=== PATIENT | male | born 1945 | race Caucasian/White ===

== ENCOUNTER 2023-10-16 09:26 | Observation (INO) ==
--- NOTE | 2023-10-16 09:47 | Emergency Department Note ---
Impression & Plan Chest pain, D-dimer, elevated, Anemia ED Provider Note NAME: HAKAN HECK AGE: 78 SEX: M : 1945 ARRIVES VIA: Walk-In INFORMANT: Patient, ED PROVIDER(S): Hugo Spivey DO CHIEF COMPLAINT: Exertional chest pain HPI: Patient is a 78-year-old male with past medical history of Raynaud's, and hypertension who presents to the ER for exertional chest pain. Symptoms started on Monday. Prior to this he has been noticing that with any exertion he is very winded and worn out. Monday started noticing twinges in the middle of his chest with exertion. Resolves with rest. No arm or jaw pain. No belly pain, nausea, vomiting, or diarrhea. No dysuria, urgency or frequency. No other exacerbating or remitting factors. ADDITIONAL HISTORY OBTAINED: Per HPI Chronic Medical/Social Conditions Affecting Care: Per HPI PAST MEDICAL HISTORY:See Below PAST SURGICAL HISTORY:See Below FAMILY HISTORY:See Below SOCIAL HISTORY:See Below HOME MEDICATIONS:See Below ALLERGIES:See Below VITALS:See Below PHYSICAL EXAMINATION: GENERAL: Sitting up in bed, alert, well appearing, well nourished, no distress, non-toxic EYE EXAM: normal conjunctiva. PERRL and EOM's grossly intact. OROPHARYNX: no exudate, no erythema, lips, buccal mucosa, and tongue normal and mucous membranes are moist NECK: supple, no nuchal rigidity, no adenopathy, non-tender LUNGS: Clear to auscultation. Normal chest wall mechanics HEART: no murmurs, S1 normal and S2 normal ABDOMEN: abdomen soft, non-tender, normo-active bowel sounds, no masses, no rebound or guarding. BACK: Back is symmetrical on inspection and there is no deformity, no midline tenderness, no CVA tenderness. SKIN: no rashes and no bruising UPPER EXTREMITIES: upper extremities are grossly normal. LOWER EXTREMITIES: No pitting edema. NEURO EXAM: Normal sensorium, cranial nerves II-XII grossly intact, normal speech, no gross weakness of arms, no gross weakness of legs. MEDICAL DECISION MAKING: Patient is a 78-year-old male who presents ER for the above-stated complaint. IV was established medicos obtained. Labs show no significant leukocytosis and a mild anemia at 12. INR unremarkable. D-dimer was elevated at 3600. BMP on LFTs bilirubin was unremarkable. Troponin was negative at 16.2. Lipase was normal. Patient was given aspirin. He was pain-free while in the ED. EKG showed Q waves in the septal leads. He notes he was seen by his PCP and he felt like he had a new murmur and they tried to get him an echo as an outpatient. With the exertional symptoms I discussed the case with the hospitalist as well as cardiology who agreed with admission and further workup. Patient remained stable while in the ER. CT angio of the chest was negative. Consults/Care Managements Discussions: Per [facility] Triage Nursing notes reviewed. Limited review of prior medical records performed Vital Signs: reviewed and remarkable for HTN Differential diagnosis: Cardiac ischemia, aortic dissection, pulmonary embolism, pneumothorax, pneumonia, pericarditis, myocarditis, esophageal rupture, GERD, cholecystitis, pancreatitis, musculoskeletal, as well as other pathologies. ER treatment provided: See below Diagnostics interpreted by me include EKG and cardiac monitoring as listed below: -Cardiac Monitoring: An order was placed for continuous cardiac monitoring. The monitor shows a rate of 80 with sinus rhythm. -ECG: Sinus rhythm with first-degree AV block Rate of 78 Normal axis PVC QTc 424 Septal Q waves are new in comparison to old -Laboratory studies:Interpreted by me as stated above in MDM and shown below. Imaging studies: Xrays: As interpreted by me: Portable AP upright 1 view of the chest shows no focal infiltrate CTs show: CT angio the chest was negative Procedures:none Critical Care: None Past Med/Surg History Problem List (Updated 10/16/23 @ 13:47 by Hugo Spivey DO) Anemia (Acute) D-dimer, elevated (Acute) History of hypertension had been on valsartan, stopped 6 days ago due to low bp Chest pain (Acute) Medical History (Updated 10/16/23 @ 13:47 by Hugo Spivey DO) Osteoarthritis of right shoulder Bilateral inguinal hernia without obstruction or gangrene Raynauds disease Osteoarthritis Cardiac murmur (09/2023) recent finding by pcp due to c/o fatigue with extended walking, scheduled for echo on 10/25 at [facility] Hx of migraines Hx of Lyme disease History of COVID-19 (08/2021) home test -fever, fatigue; no hospitalization, no current issues Surgical History Hx of inguinal hernia surgery bilateral History of cataract surgery r/l H/O vasectomy H/O colonoscopy Family History Mother Cancer Father Cancer Brother Colorectal cancer Other No family history of adverse response to anesthesia Social History Smoking Status: Never smoker Second Hand Exposure: No; Do You Dip or Chew Tobacco: No; Hx Alcohol Use: Yes Alcohol type: beer Hx Substance Use: No Preferred Language: Romansh Communication Ability: Effective Dock Clerk Required: No Beliefs That Will Affect Care: None marital status: Current Living Situation: Spouse current occupational status: retired Feels Safe at Home: Yes Assistive Devices: None Allergies Allergies Allergy/AdvReac Type Severity Reaction Status Date / Time clarithromycin Allergy Unknown Unknown - Unverified 10/16/23 11:41 On file w/ [facility] Home Meds Home Medications Medication Instructions Recorded Confirmed valsartan 40 mg tablet 40 mg PO DAILY 10/16/23 10/16/23 Results & Data (ED) Vital Signs Vital Signs - 24 hr 10/16/23 09:31 10/16/23 09:51 10/16/23 09:56 Temperature 36.0 C L Temperature Source Temporal Artery Scan Pulse Rate 81 68 Pulse Rate [Apical] 73 Pulse Rate from SpO2 Sensor Respiratory Rate 20 14 Respiratory Effort / Characteristics Non-Labored Spontaneous Respiratory Depth Normal Respiratory Pattern Regular Blood Pressure 156/86 H Blood Pressure [Right Arm] 141/66 H Blood Pressure Mean 109 Blood Pressure Mean [Right Arm] 91 Pulse Oximetry 100 99 Oxygen Delivery Method Room Air Room Air Sepsis Recent Fever Within 48 Hours No Sepsis New/Unexplained Change in Mental Status N/A Sepsis Action Taken by Nursing No Action Required 10/16/23 09:56 10/16/23 12:04 10/16/23 12:15 Temperature Temperature Source Pulse Rate 73 63 104 H Pulse Rate [Apical] Pulse Rate from SpO2 Sensor 64 Respiratory Rate 14 17 20 Respiratory Effort / Characteristics Respiratory Depth Respiratory Pattern Blood Pressure 148/94 H Blood Pressure [Right Arm] Blood Pressure Mean 122 Blood Pressure Mean [Right Arm] Pulse Oximetry 100 Oxygen Delivery Method Room Air Sepsis Recent Fever Within 48 Hours Sepsis New/Unexplained Change in Mental Status Sepsis Action Taken by Nursing 10/16/23 13:15 Temperature Temperature Source Pulse Rate 65 Pulse Rate [Apical] Pulse Rate from SpO2 Sensor Respiratory Rate 17 Respiratory Effort / Characteristics Respiratory Depth Respiratory Pattern Blood Pressure Blood Pressure [Right Arm] Blood Pressure Mean Blood Pressure Mean [Right Arm] Pulse Oximetry Oxygen Delivery Method Sepsis Recent Fever Within 48 Hours Sepsis New/Unexplained Change in Mental Status Sepsis Action Taken by Nursing Laboratory Data 10/16/23 09:47 10/16/23 09:47 Lab Results 10/16/23 Range/Units 09:47 WBC 6.41 (4.8-10.8) K/ul RBC 4.28 L (4.70-6.10) M/uL Hgb 12.4 L (14.0-18.0) g/dl Hct 39.3 L (42.0-52.0) % MCV 91.8 (80.0-100.0) fL MCH 29.0 (25.0-34.0) pg MCHC 31.6 L (32.0-36.0) g/dL RDW Std Deviation 43.5 (36.4-46.3) fL RDW Coeff of Telma 13.0 (11.5-14.5) % Plt Count 317 (130-400) K/uL MPV 9.7 (9.4-12.4) fL Immature Gran % (Auto) 0.9 % Neut % (Auto) 78.1 % Lymph % (Auto) 10.9 % Sawyer % (Auto) 8.1 % Eos % (Auto) 1.2 % Baso % (Auto) 0.8 % Neut # (Auto) 5.00 (1.40-6.50) K/uL Lymph # (Auto) 0.70 L (1.20-3.40) K/uL Sawyer # (Auto) 0.52 (0.11-0.59) K/uL Eos # (Auto) 0.08 (0.00-0.50) K/uL Baso # (Auto) 0.05 (0.00-0.20) K/uL Immature Gran # (Auto) 0.06 (0.01-0.20) K/uL PT 11.0 (9.0-12.0) Seconds INR 1.0 (0.9-1.1) APTT 29 (21-31) Seconds PTT Ratio 1.1 D-Dimer 3600 H* (0-500) ug/L FEU Sodium 136 (136-145) mmol/L Potassium 3.8 (3.5-5.1) mmol/L Chloride 102 (98-107) mmol/L Carbon Dioxide 27 (21-32) mmol/L Anion Gap 7 (3-11) BUN 18 (6-23) mg/dl Creatinine 0.95 (0.6-1.4) mg/dl Est Cr Clr Drug Dosing 58.1 ml/min Est GFR ( Amer) 89.8 ml/min Est GFR (Non-Af Amer) 77.4 ml/min BUN/Creatinine Ratio 18.9 (10-20) Glucose 113 H (70-99(Fasting)) mg/dl Calcium 9.5 (8.6-10.3) mg/dl Magnesium 1.9 (1.7-2.4) mg/dl Total Bilirubin 0.6 (0.2-1.0) mg/dl AST 35 (13-39) U/L ALT 24 (7-52) U/L Alkaline Phosphatase 78 (34-104) U/L Troponin I High Sens 16.2 (0-20) pg/ml Total Protein 8.6 H (6.0-8.3) gm/dl Albumin 4.1 (3.4-5.0) gm/dl Globulin 4.5 H (2.5-4.0) gm/dl Albumin/Globulin Ratio 0.9 (0.9-2) Lipase 43 (11-82) U/L Administered Medications Discontinued Medications Aspirin (Aspirin Chew 324 Mg) 324 mg PO NOW STA Stop: 10/16/23 09:48 Last Admin: 10/16/23 09:53 Dose: 324 mg Documented By: ABDI Sodium Chloride (Nss) 1,000 mls @ 999 mls/hr IV .Q1H1M ONE Stop: 10/16/23 10:48 Last Infusion: 10/16/23 11:22 Dose: Infused Documented By: Admin: 10/16/23 09:55 Dose: 999 mls/hr Documented By: ABDI Ioversol (Optiray 320 125ml) 119 ml IV ONCE ONE Stop: 10/16/23 12:46 Last Admin: 10/16/23 12:45 Dose: 119 ml Documented By: KSF Nitroglycerin (Nitroglycerin Sl 0.4 Mg/Tab Tab) 0.4 mg SL NOW STA Stop: 10/16/23 09:48 Last Admin: 10/16/23 09:52 Dose: Not Given Documented By: ABDI Imaging Data Radiologist's Impression: Chest X-Ray 10/16/23 09:38 XR chest 1V portable CLINICAL HISTORY: Chest pain, nonspecific. COMPARISON STUDY: No previous studies for comparison. FINDINGS: Lung volumes are normal. Lungs are clear. There is no pneumothorax or pleural effusion. Cardiac size is normal. Mediastinal contours are normal. There is no evidence for pulmonary edema. IMPRESSION: No acute cardiopulmonary findings. ACT 112: Negative or not required by law. Electronically signed by: Colin Robbins M.D. 10/16/2023 10:04 AM Chest CTA 10/16/23 11:55 CT ANGIOGRAPHY OF THE CHEST, PULMONARY EMBOLUS PROTOCOL CLINICAL HISTORY: Shortness of breath. Evaluate for pulmonary embolus. COMPARISON STUDY: Chest radiograph performed earlier today. TECHNIQUE: Following IV administration of 119 mL of Optiray, helical axial images of the chest were obtained utilizing the pulmonary embolus protocol. Maximal intensity projections and sagittal and coronal reformats were viewed on an independent 3D workstation. IV contrast was administered without complication. Automated exposure control was utilized for the study. A dose lowering technique was utilized adhering to the principles of ALARA. CT DOSE: 410.04 mGy.cm FINDINGS: No pulmonary emboli are identified. There is no thoracic aortic dissection. The size of the heart is normal. There is moderate coronary artery calcification. There is no pericardial effusion. No enlarged axillary, mediastinal or hilar lymph nodes are present. There is no pneumothorax or pleural effusion. There is no consolidation to suggest pneumonia. No suspicious pulmonary nodules are present. Mild subpleural groundglass opacities represent atelectasis. There are no acute fractures within the visualized bony thorax. Visualized portions of the upper abdomen are unremarkable. IMPRESSION: 1. No pulmonary emboli identified. 2. No acute intrathoracic findings. ACT 112: Negative or not required by law. Electronically signed by: Colin Robbins M.D. 10/16/2023 1:20 PM Discharge Plan Visit Data Chief Complaint: Chest Pain Stated Complaint: CHEST PAIN, HEART MURMUR, FATIGUE ED Provider: uHgo Spivey Discharge Problem: Chest pain, D-dimer, elevated, Anemia Forms Stand Alone Forms: [facility] Prescriptions Prescriptions: No Action valsartan 40 mg tablet 40 mg PO DAILY Referrals Referrals: Dung Quigley MD [Primary Care Provider] - Discharge Problem: Chest pain Qualifiers: Chest pain type: unspecified Qualified Code(s): R07.9 - Chest pain, unspecified Anemia Qualifiers: Anemia type: unspecified type Qualified Code(s): D64.9 - Anemia, unspecified
[2023-10-16] MEDS: NITROGLYCERIN SL 0.4 MG/TAB TAB SL STA (09:52)
[2023-10-16] MEDS: ASPIRIN CHEW 324 MG PO STA (09:53)
[2023-10-16] MEDS: SODIUM CHLORIDE 0.9% 1,000 ML IV ONE (09:55)
--- NOTE | 2023-10-16 10:05 | XRay Report ---
XR chest 1V portable CLINICAL HISTORY: Chest pain, nonspecific. COMPARISON STUDY: No previous studies for comparison. FINDINGS: Lung volumes are normal. Lungs are clear. There is no pneumothorax or pleural effusion. Car diac size is normal. Mediastinal contours are normal. There is no evidence for pulmonary edema. IMPRESSION: No acute cardiopulmonary findings. ACT 112: Negative or not required by law. Electronically signed by: Colin Robbins M.D. 10/16/2023 10:04 AM
[2023-10-16 10:10] LABS: Basophils # (auto) 0.05 K/uL (0.00-0.20); Basophils % (auto) 0.8 %; Eosinophils # (auto) 0.08 K/uL (0.00-0.50); Eosinophils % (auto) 1.2 %; Hematocrit (blood only) 39.3 % (42.0-52.0); Hemoglobin 12.4 g/dl (14.0-18.0); Immature Granulocytes # (auto) 0.06 K/uL (0.01-0.20); Immature Granulocytes % (auto) 0.9 %; Lymphocytes % (auto) 10.9 %; Mean Corpuscular Hgb Conc 31.6 g/dL (32.0-36.0); Mean Corpuscular Volume 91.8 fL (80.0-100.0); Mean Platelet Volume 9.7 fL (9.4-12.4); Monocytes # (auto) 0.52 K/uL (0.11-0.59); Monocytes % (auto) 8.1 %; Neutrophils % (auto) 78.1 %; Platelet Count 317 K/uL (130-400); RDW Standard Deviation 43.5 fL (36.4-46.3); Red Blood Count 4.28 M/uL (4.70-6.10); White Blood Count 6.41 K/ul (4.8-10.8)
[2023-10-16 10:27] LABS: Albumin Globulin Ratio 0.9 (0.9-2); Albumin Level 4.1 gm/dl (3.4-5.0); BUN Creatinine Ratio 18.9 (10-20); Bilirubin,Total 0.6 mg/dl (0.2-1.0); Calcium 9.5 mg/dl (8.6-10.3); Creatinine Clr Calc Pharmacy 58.1 ml/min; Est GFR (African American) 89.8 ml/min; Est GFR (Non-African American) 77.4 ml/min; Globulin 4.5 gm/dl (2.5-4.0); Potassium 3.8 mmol/L (3.5-5.1); Total Protein 8.6 gm/dl (6.0-8.3)
[2023-10-16 10:33] LABS: Troponin I High Sensitivity 16.2 pg/ml (0-20)
[2023-10-16 11:38] LABS: D Dimer 3600 ug/L FEU (0-500)
--- NOTE | 2023-10-16 12:16 | History & Physical Report ---
Date of Service October 16, 2023 History of Present Illness Chief Complaint: Chest pain Primary Care Provider: Dung Quigley MD Ross Kowalski is a 78 year old male who presents to the ER with chest pain Allergies Allergy/AdvReac Type Severity Reaction Status Date / Time clarithromycin Allergy Unknown Unknown - Unverified 10/16/23 11:41 On file w/ [facility] Home Medications Medication Instructions Recorded Confirmed Type valsartan 40 mg tablet 40 mg PO DAILY 10/16/23 10/16/23 History Past Med/Surg History Problem List Medical History (Updated 10/16/23 @ 12:29 by Alberto Danielson MD) Osteoarthritis of right shoulder Bilateral inguinal hernia without obstruction or gangrene Raynauds disease Osteoarthritis Cardiac murmur (09/2023) recent finding by pcp due to c/o fatigue with extended walking, scheduled for echo on 10/25 at [facility] [place] History of hypertension had been on valsartan, stopped 6 days ago due to low bp Hx of migraines Hx of Lyme disease History of COVID-19 (08/2021) home test -fever, fatigue; no hospitalization, no current issues Surgical History Hx of inguinal hernia surgery bilateral History of cataract surgery r/l H/O vasectomy H/O colonoscopy Family History Mother Cancer Father Cancer Brother Colorectal cancer Other No family history of adverse response to anesthesia Social History Smoking Status: Never smoker Second Hand Exposure: No; Do You Dip or Chew Tobacco: No; Hx Alcohol Use: Yes Alcohol type: beer Hx Substance Use: No Preferred Language: Romanian Communication Ability: Effective Social Services Assistant Required: No Beliefs That Will Affect Care: None marital status: Current Living Situation: Spouse current occupational status: retired Feels Safe at Home: Yes Assistive Devices: None Results & Data Results & Data Vital Signs (Past 12 Hours) Vital Signs Temp Pulse Pulse Resp BP BP Pulse Ox 10/16/23 12:04 63 17 148/94 H 100 10/16/23 09:56 73 14 10/16/23 09:56 73 14 141/66 H 99 10/16/23 09:51 68 10/16/23 09:31 36.0 C L 81 20 156/86 H 100 O2 Del Method 10/16/23 12:04 10/16/23 09:56 Room Air 10/16/23 09:56 Room Air 10/16/23 09:51 10/16/23 09:31 Room Air Laboratory Results Abnormal lab results 10/16/23 Range/Units 09:47 RBC 4.28 L (4.70-6.10) M/uL Hgb 12.4 L (14.0-18.0) g/dl Hct 39.3 L (42.0-52.0) % MCHC 31.6 L (32.0-36.0) g/dL Lymph # (Auto) 0.70 L (1.20-3.40) K/uL D-Dimer 3600 H* (0-500) ug/L FEU Glucose 113 H (70-99(Fasting)) mg/dl Total Protein 8.6 H (6.0-8.3) gm/dl Globulin 4.5 H (2.5-4.0) gm/dl Diagnostic Findings XR chest 1V portable CLINICAL HISTORY: Chest pain, nonspecific. COMPARISON STUDY: No previous studies for comparison. FINDINGS: Lung volumes are normal. Lungs are clear. There is no pneumothorax or pleural effusion. Cardiac size is normal. Mediastinal contours are normal. There is no evidence for pulmonary edema. IMPRESSION: No acute cardiopulmonary findings. Medications Administered ER Medications Given: Aspirin 324mg PO Nitroglycerin 0.4mg SL Normal saline 1L bolus ECG Rate (beats per minute): 78 Rhythm: normal sinus Findings: + 1st degree AV block and + PVC Comparison ECG Date: no prior available PG Care Time/CCT Total # of Minutes Spent Total Time Spent with Patient: Total time spent is greater than 50% in coordination of care (as documented) at patient's floor/unit and/or counseling patient: Coding
[2023-10-16 12:31] LABS: Magnesium 1.9 mg/dl (1.7-2.4)
[2023-10-16 12:33] LABS: Partial Thromboplastin Ratio 1.1; Partial Thromboplastin Time 29 Seconds (21-31)
[2023-10-16] MEDS: OPTIRAY 320 125ml IV ONE (12:45)
--- NOTE | 2023-10-16 12:47 | History & Physical Report ---
Date of Service October 16, 2023 Assessment & Plan (1) Chest pain: Plan: Intermittent midsternal chest pain that began the evening of 10/13 Occurred while patient was walking up a flight of stairs; ?Exertional However, he report 1 episode of chest pain at rest while in the ED No leukocytosis; afebrile D-dimer elevated; chest CTA without pulmonary embolism Troponin WNL on arrival, repeat pending Unclear etiology; DDx at this time includes worsening unstable angina, esophageal spasms, costochondritis, MSK, GERD, and referred pain from the right shoulder (among other etiologies) Stress echocardiogram planned for the morning of 10/16 Continuous telemetry monitoring A.m. CBC, BMP (2) History of hypertension: Plan: Continue to hold valsartan for now Plan [facility]: [facility] Full code Heart healthy diet VTE PPx: Lovenox 40 mg SQ q24h History of Present Illness Chief Complaint: Chest pain Primary Care Provider: Dung Quigley MD Ross is a pleasant 78-year-old male with PMH of Raynaud's, osteoarthritis, HTN, and migraines. He presented on 10/15 for multiple episodes of exertional midsternal chest pain over the weekend. Patient reports that he was going up a flight of steps on Monday night, and had several "spasms" in his chest that struck him 3-4 times. He described it as feeling "paralyzed" for a moment and like he was hit by an electrical shock. No prior experiences like this 1. He reports he did not feel like reflux or GERD. No radiation to the shoulders/jaw/arms. This experience is new for him, and he has not had chest pain like this in the past. He then had 2 additional episodes of chest pain that occurred today, 1 which occurred at rest. These episodes last for a couple seconds, then resolved. He rates the pain 8/10 at worst. No residual pain once it dissipates. He is not currently taking any medications at home for this pain. He reports that it is hard to correlate if there are any exacerbating or alleviating symptoms, but that he is currently afraid to exert himself after what occurred on Monday night. No PMH of SD, CHF, CVA, DVT/PE, PVD, or diabetes. He denies smoking, tobacco use, recent alcohol use; however, he does drink around 1 beer per day, and did have a beer Monday night. He reports he was recently diagnosed with a heart murmur by his PCP on Tuesday 10/10 and told to stop taking his valsartan. He does not take any other medications on a daily basis. He is currently scheduled for an echocardiogram on 10/25 in [place]. No recent change in diet, but he does not watch his salt intake and does note that his ankles have been swelling up recently. He does report a gradual loss of weight due to eating less. He is also scheduled for a total right shoulder replacement at the end of the month. No recent falls, injuries, trauma, or straining of the chest wall. Patient is hypertensive at 148/94 at time of admission; vitals otherwise stable. ED course: Aspirin 324 mg p.o. 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 Patient denies fever, chills, night-sweats, dizziness, lightheadedness, BENITO, chest pain at present, pleuritic CP, SOB at rest, cough, abdominal pain, N/V/D, changes in urinary/bowel habits, or numbness/tingling in the arms . Allergies Allergy/AdvReac Type Severity Reaction Status Date / Time clarithromycin Allergy Unknown Unknown - Unverified 10/16/23 11:41 On file w/ [facility] pharmacy Home Medications Medication Instructions Recorded Confirmed Type valsartan 40 mg tablet 40 mg PO DAILY 10/16/23 10/16/23 History Past Med/Surg History Problem List (Updated 10/16/23 @ 13:47 by Hugo Spivey DO) Anemia (Acute) D-dimer, elevated (Acute) History of hypertension had been on valsartan, stopped 6 days ago due to low bp Chest pain (Acute) Medical History (Updated 10/16/23 @ 13:47 by Hugo Spivey DO) Osteoarthritis of right shoulder Bilateral inguinal hernia without obstruction or gangrene Raynauds disease Osteoarthritis Cardiac murmur (09/2023) recent finding by pcp due to c/o fatigue with extended walking, scheduled for echo on 10/25 at [facility] Hx of migraines Hx of Lyme disease History of COVID-19 (08/2021) home test -fever, fatigue; no hospitalization, no current issues Surgical History Hx of inguinal hernia surgery bilateral History of cataract surgery r/l H/O vasectomy H/O colonoscopy Family History Mother Cancer Father Cancer Brother Colorectal cancer Other No family history of adverse response to anesthesia Social History Smoking Status: Never smoker Second Hand Exposure: No; Do You Dip or Chew Tobacco: No; Tobacco Cessation Education Requested by Patient: No Hx Alcohol Use: Yes Alcohol type: beer Hx Substance Use: No Preferred Language: Setswana Communication Ability: Effective Ribbon Cleaner Required: No Beliefs That Will Affect Care: None marital status: Current Living Situation: Spouse current occupational status: retired Other Information That Helps Us Care for You: No Feels Safe at Home: Yes Safety Concerns: Feels Safe At This Time Assistive Devices: None Review of Systems Review of Systems: See HPI above Physical Exam Physical Exam: General: no acute distress; pleasant affect; non-toxic appearing; well- nourished; cooperative; SpO2 100% on RA HEENT: normocephalic, atraumatic; no scleral icterus; PERRLA; vision and hearing grossly intact Neck: supple; no lymphadenopathy; trachea midline Skin: warm, dry without signs of tenting; no cyanosis; no rashes, bruising, lesions, or erythema noted CV: chest wall NTP; pain is not reproducible on palpation; RRR; S1/S2 normal; 2/6 ejection murmur auscultated at the second ICS MCL; pulses intact and symmetric at radial, DP, and PT Lungs: no acute respiratory distress; symmetrical chest wall expansion; clear breath sounds across all lung ramirez w/o adventitious sounds; no wheezing ABD: Soft, NTP; BS present; no rebound/guarding; no distention MSK: no tics or fasciculations; +1 pitting edema noted in the lower extremities bilaterally around the ankles, nonerythematous Neuro: A&Ox3; normal mood and affect; fluent speech; no focal deficits; sensation grossly intact in the LEs b/l Results & Data Results & Data Vital Signs (Past 12 Hours) Vital Signs Temp Pulse Pulse Resp BP BP Pulse Ox 10/16/23 12:04 63 17 148/94 H 100 10/16/23 09:56 73 14 10/16/23 09:56 73 14 141/66 H 99 10/16/23 09:51 68 10/16/23 09:31 36.0 C L 81 20 156/86 H 100 O2 Del Method 10/16/23 12:04 10/16/23 09:56 Room Air 10/16/23 09:56 Room Air 10/16/23 09:51 10/16/23 09:31 Room Air Laboratory Results Abnormal lab results 10/16/23 Range/Units 09:47 RBC 4.28 L (4.70-6.10) M/uL Hgb 12.4 L (14.0-18.0) g/dl Hct 39.3 L (42.0-52.0) % MCHC 31.6 L (32.0-36.0) g/dL Lymph # (Auto) 0.70 L (1.20-3.40) K/uL D-Dimer 3600 H* (0-500) ug/L FEU Glucose 113 H (70-99(Fasting)) mg/dl Total Protein 8.6 H (6.0-8.3) gm/dl Globulin 4.5 H (2.5-4.0) gm/dl Diagnostic Findings Chest X-Ray 10/16/23 09:38 XR chest 1V portable CLINICAL HISTORY: Chest pain, nonspecific. COMPARISON STUDY: No previous studies for comparison. FINDINGS: Lung volumes are normal. Lungs are clear. There is no pneumothorax or pleural effusion. Cardiac size is normal. Mediastinal contours are normal. There is no evidence for pulmonary edema. IMPRESSION: No acute cardiopulmonary findings. ACT 112: Negative or not required by law. Electronically signed by: Colin Robbins M.D. 10/16/2023 10:04 AM ECG Additional Comments: ECG revealed sinus rhythm with first-degree AV block at 78 bpm; QTc 424 No prior EKGs for comparison Code Status & VTE Plan Code Status Full code (discussed with both patient and patient's medical POA at bedside) VTE Prophylaxis Plan VTE Prophylaxis will be ordered: Yes Supervising Physician Co-Signing Physician Notes I personally saw and examined the patient. I independently reviewed the labs, EKG, imaging, problem list, medication list, past medical history and family history. I verified all lorenzo points and agree with Brodie Rosario PA-C with the following exceptions and/or additions: 78 year old male presents to the ER intermittent chest pain lasting for a few seconds each time with increasing frequency. Also having increased fatigue and decreased exercise tolerance over the last few months. O/E A&Ox3, HS RRR, no murmurs, Chest CTAB, Abdo SNT A/P Atypical chest pain - trend troponin, exercise stress echo in AM, if negative can likely be discharged at that time. No association with food to suggest esophageal spasm, history more suggestive of muscle spasms PG Care Time/CCT Total # of Minutes Spent Total Time Spent with Patient: Total time spent is greater than 50% in coordination of care (as documented) at patient's floor/unit and/or counseling patient: Coding [place] [address] INT INP/OBS CARE 2/55MIN Patient Type Established Medical Decision Making Moderate Complexity Diagnoses Chest pain R07.9 History of hypertension Z86.79
--- NOTE | 2023-10-16 13:21 | CT Scan Report ---
CT ANGIOGRAPHY OF THE CHEST, PULMONARY EMBOLUS PROTOCOL CLINICAL HISTORY: Shortness of breath. Evaluate for pulmonary embolus. COMPARISON STUDY: Chest radiograph performed earlier today. TECHNIQUE: Following IV administration of 119 mL of Optiray, helical axial images of the chest were o btained utilizing the pulmonary embolus protocol. Maximal intensity projections and sagittal and cor onal reformats were viewed on an independent 3D workstation. IV contrast was administered without co mplication. Automated exposure control was utilized for the study. A dose lowering technique was ut ilized adhering to the principles of ALARA. CT DOSE: 410.04 mGy.cm FINDINGS: No pulmonary emboli are identified. There is no thoracic aortic dissection. The size of th e heart is normal. There is moderate coronary artery calcification. There is no pericardial effusion. No enlarged axillary, mediastinal or hilar lymph nodes are present. There is no pneumothorax or pleu ral effusion. There is no consolidation to suggest pneumonia. No suspicious pulmonary nodules are pre sent. Mild subpleural groundglass opacities represent atelectasis. There are no acute fractures withi n the visualized bony thorax. Visualized portions of the upper abdomen are unremarkable. IMPRESSION: 1. No pulmonary emboli identified. 2. No acute intrathoracic findings. ACT 112: Negative or not required by law. Electronically signed by: Colin Robbins M.D. 10/16/2023 1:20 PM
[2023-10-16] MEDS ORDERED: ONDANSETRON INJ 2 MG/ML 2 ML VIAL IV PRN (22:22)
[2023-10-16] MEDS: ENOXAPARIN INJ 40 MG/0.4 ML SYR SQ SCH (22:25)
[2023-10-17 03:55] VITALS: RESP 18
[2023-10-17 04:53] LABS: Hematocrit (blood only) 31.1 % (42.0-52.0); Hemoglobin 9.9 g/dl (14.0-18.0); Mean Corpuscular Hemoglobin 28.7 pg (25.0-34.0); Mean Corpuscular Hgb Conc 31.8 g/dL (32.0-36.0); Mean Corpuscular Volume 90.1 fL (80.0-100.0); Mean Platelet Volume 9.8 fL (9.4-12.4); Platelet Count 243 K/uL (130-400); RDW Coefficient of Variation 12.8 % (11.5-14.5); Red Blood Count 3.45 M/uL (4.70-6.10)
[2023-10-17 05:12] LABS: BUN Creatinine Ratio 18.4 (10-20); Calcium 8.8 mg/dl (8.6-10.3); Creatinine Clr Calc Pharmacy 70.4 ml/min; Est GFR (African American) 97.2 ml/min; Est GFR (Non-African American) 83.8 ml/min; Potassium 3.9 mmol/L (3.5-5.1)
[2023-10-17] MEDS: VALSARTAN 80 MG TAB PO SCH (08:14)
[2023-10-17 10:33] LABS: Influenza A virus by PCR Negative (Neg); Influenza B virus by PCR Negative (Neg); RSV by PCR Negative (Neg); SARS CoV2 RNA(COVID-19) Ceph NEGATIVE (Negative)
--- NOTE | 2023-10-17 11:48 | Electrocardiogram Report ---
Test Reason : Blood Pressure : */* mmHG Vent. Rate : 78 BPM Atrial Rate : 78 BPM P-R Int : 288 ms QRS Dur : 100 ms QT Int : 372 ms P-R-T Axes : 37 77 46 degrees QTcB Int : 424 ms Sinus rhythm with 1st degree A-V block with Premature supraventricular complexes and Premature ventri cular complexes Septal infarct , age undetermined Abnormal ECG No previous ECGs available Confirmed by Osbaldo Crowe ([id number]) on 10/17/2023 11:47:50 AM Referred By: REFERRED SELF Confirmed By: Osbaldo Crowe
[2023-10-17] MEDS: ATROPINE SULFATE 0.1 MG/ML 10ML SYR IV ONE (13:03)
[2023-10-17] MEDS: DOBUTamine HCL 12.5 MG/ML 20 ML VIAL IV ONE (13:05)
[2023-10-17] MEDS: METOPROLOL TARTRATE 1 MG/ML VIAL IV ONE (13:06)
[2023-10-17] MEDS: NITROGLYCERIN SL 0.4 MG/TAB TAB ONE (13:06)
--- NOTE | 2023-10-17 14:24 | XCELERA ---
[id number]
[2023-10-17 15:31] LABS: Hematocrit (blood only) 30.5 % (42.0-52.0); Hemoglobin 9.9 g/dl (14.0-18.0); Mean Corpuscular Hemoglobin 29.1 pg (25.0-34.0); Mean Corpuscular Hgb Conc 32.5 g/dL (32.0-36.0); Mean Corpuscular Volume 89.7 fL (80.0-100.0); Mean Platelet Volume 9.6 fL (9.4-12.4); Platelet Count 251 K/uL (130-400); RDW Coefficient of Variation 12.8 % (11.5-14.5); RDW Standard Deviation 42.1 fL (36.4-46.3); White Blood Count 5.45 K/ul (4.8-10.8)
[2023-10-17] MEDS: PANTOprazole 40 MG TAB PO SCH (17:23)
--- NOTE | 2023-10-17 19:35 | Hospitalist Progress Note ---
Date of Service October 17, 2023 Assessment & Plan (1) Anemia: Plan: Presenting Hb was 12.4, falling to 9.9 this am, and then was 9.9 again this afternoon no overt GI bleeding at home or here in the hospital I would expect with phlebotomy yesterday/today a drop of about 1 to 1.5gm in the hemoglobin but not 2.5gm Perhaps his chest symptoms are from an upper GI problem?? Start PPI twice daily Recheck CBC with Fe studies in am Keep NPO after MN tonight If H/H drop further will ask GI to see for consideration of EGD If he has a stool check fecal occult blood (2) Chest pain: Plan: Dobutamine stress echo negative for ischemia at 84% of max predicted HR (just shy of target HR) EKG wnl Tele wnl Troponins negative CTA chest neg for PE COVID testing negative Etiology of pain?? Does have coronary calcifications on CTA chest Discussed this in detail with pt & his Check lipids in am Perhaps pains are not cardiac at all - perhaps due to GI issue given #1 above Perhaps musculoskeletal Plan to observe overnight - mainly due to #1 and concern for GI source (3) History of hypertension: Plan: Controlled on low-dose valsartan (4) Osteoarthritis of right shoulder: Plan: severe needs total shoulder replacement to have such in future by Dr Drake Quan doubt it is contributing to his chest pain (5) Cardiac murmur: Plan: no significant valvular issue/disease on echo today functional/flow murmur only Plan place Lovenox 40 mg SQ q24h on hold due to drop in H/H updated several times today at bedside Admission and Anticipated Discharge Date Admission Date: October 16, 2023 Subjective saw patient post-stress test states he had a "a little" chest discomfort in the central chest sternal region during the stress test but it went away on its own it was similar to previous episodes of chest discomfort but not as severe all of his chest pain symptoms are typically very brief in duration (seconds) denies any recent abd pain, nausea denies any recent overt melena or BRBPR denies any dyspnea does take advil but only 1-2x's/week for right shoulder pain (is supposed to have total shoulder replacement on right in the future by Dr Quan) tele overnight wnl Review of Systems Review of Systems: cv - see HPI pulm - no cough, no dyspnea GI - no vomiting, no dysphagia heme - he doesn't recall his PCP in [place] telling him he was anemic Physical Exam Physical Exam: gen - NAD, lying in bed comfortably mouth - MMM neck - no JVD heart - 1/6 LUCAS LSB, RRR, s1 s2 lungs - CTA b/l chest - no reproducible chest wall tenderness to palpation abd - soft, NT, ND, BS+, no HSM ext - no edema, pulses 2+ b/l musculo - right shoulder - with passive ROM he reports pain in the shoulder but the pain does not radiate anywhere else psych - a/o x 3 Results & Data Results & Data Vital Signs (Past 12 Hours) Vital Signs Temp Pulse Pulse Resp BP Pulse Ox O2 Del Method 10/17/23 15:37 36.6 C 77 18 122/71 96 Room Air 10/17/23 14:55 82 10/17/23 08:15 Room Air 10/17/23 07:58 36.8 C 75 18 133/69 96 Room Air Laboratory Results Laboratory Results - last 24 hr 10/17/23 10/17/23 10/17/23 09:10 15:09 Unknown WBC 5.45 RBC 3.40 L Hgb 9.9 L Hct 30.5 L MCV 89.7 MCH 29.1 MCHC 32.5 RDW Std Deviation 42.1 RDW Coeff of Telma 12.8 Plt Count 251 MPV 9.6 C-Reactive Protein 0.90 H SARS-CoV-2 (PCR) NEGATIVE Influenza Type A (PCR) Negative Influenza Type B (PCR) Negative RSV (RT-PCR) Negative PG Care Time/CCT Total # of Minutes Spent Total Time Spent with Patient: Total time spent is greater than 50% in coordination of care (as documented) at patient's floor/unit and/or counseling patient: Coding Level of Care Code 82745 SUB INP/OBS CARE 3/50MIN Diagnoses Anemia D64.9 Anemia type: unspecified type Chest pain R07.9 Chest pain type: unspecified History of hypertension Z86.79 Osteoarthritis of right shoulder M19.011 Cardiac murmur R01.1 (1) Anemia Anemia type: unspecified type Qualified Code(s): D64.9 - Anemia, unspecified (2) Chest pain Chest pain type: unspecified Qualified Code(s): R07.9 - Chest pain, unspecified
[2023-10-18] MEDS: ACETAMINOPHEN 325 MG TAB PO PRN (03:28)
[2023-10-18 06:21] LABS: Hematocrit (blood only) 32.2 % (42.0-52.0); Hemoglobin 10.4 g/dl (14.0-18.0); Mean Corpuscular Hemoglobin 28.7 pg (25.0-34.0); Mean Corpuscular Hgb Conc 32.3 g/dL (32.0-36.0); Platelet Count 240 K/uL (130-400); RDW Coefficient of Variation 12.7 % (11.5-14.5); RDW Standard Deviation 41.1 fL (36.4-46.3); Red Blood Count 3.62 M/uL (4.70-6.10); White Blood Count 6.33 K/ul (4.8-10.8)
[2023-10-18 06:46] LABS: BUN Creatinine Ratio 20.5 (10-20); Calcium 8.7 mg/dl (8.6-10.3); Creatinine Clr Calc Pharmacy 67.9 ml/min; Est GFR (African American) 96.7 ml/min; Est GFR (Non-African American) 83.4 ml/min; Potassium 3.8 mmol/L (3.5-5.1)
[2023-10-18 07:04] LABS: Folate (Folic Acid),Ser orPlas 8.45 ng/ml (>5.38)
[2023-10-18 07:06] LABS: Ferritin 297.8 ng/ml (8-388)
[2023-10-18 08:20] VITALS: TEMP 98.1
--- NOTE | 2023-10-18 10:28 | Gastrointestinal Consultation ---
Date of Consultation October 18, 2023 Assessment & Plan (1) Chest pain: 78 year old male admitted w/ chest discomfort, negative cardiac workup to date, GI asked to evaluate given a downtrending HGB. He denies any black or bloody stools and report his last BM was prior to admission. No report of coffee ground emesis or hematemesis. EGD was discussed and offered to rule out any gastrointestinal source of his discomfort. He is not interested in moving forward with this testing and is requesting dietary advancement and discharged. I discussed empiric PPI coverage for PUD - he tells me this is not necessary and he prefers to monitor his symptoms. His downtrending HGB may be multifactorial and dilutional given the absence of any GI output. His HGB this AM actually did improve to 10.4 and his BUN is non-elevated. Recommend conservative measure as he is not interested in endoscopic evaluation. Trend HGB. Monitor and document GI output. Transfuse PRN per primary team if indicated. Recommend NSAIDs avoidance. Consider PPI as above if he is agreeable. I spent a total of 60 minutes on the date of service in review of patient's record, and previously obtained information in person and appropriate medical visit, discussion and education of plan, with patient and/or caregiver, placing orders for tests/referral/procedures as medically necessary and documentation of pertinent clinical information in patient's medical records for their visit today.Thank you for allowing us to participate in the care of this patient. Please call with any acute changes, questions or concerns. Please see addendum below with additional recommendation from my supervising physician. Recall GI as needed. Supervising Physician Co-Signing Physician Notes Patient seen and examined. Case discussed with Lori RICHMOND. Patient is currently symptom free and is not interested in GI testing at this time and wants to go home. He is stable and from GI standpoint OK to advance diet and can consider OP evaluation if his symptoms recur or if he is interested in pursuing further work up. IP GI Service will sign off. History of Present Illness Reason for Consultation: acute drop in Hb, chest discomforts, UGI bleeding? Requesting Physician: Sweta Attending Physician: Alberto Sol MD History of Present Illness 78 year old male with history of Raynaud's, osteoarthritis, HTN, and migraines who was admitted for evaluation exertional midsternal chest pain over the weekend. GI was asked to evaluate given a negative cardiac workup to date and a drop in HGB. PT was seen and evaluated, chart reviewed. He endorses three episodes of sharp midsternal discomfort. This was not associated with nausea/vomiting/GERD. He denies reflux/regurgiation or solids dysphagia. The pain has not returned since admission. There was downtrending of his HGB this admission to 9.9, this AM HGB 10.4. Denies tobacco, NSAIDs, ETOH to me. No AC use. HGB 12.4 --> 9.9 --> 9.9 --> 10.4 BUN 18 Tbili 0.6 AST 35 ALT 24 ALKP 78 Chest CTA 2023: No pulmonary emboli are identified. There is no thoracic aortic dissection. The size of the heart is normal. There is moderate coronary artery calcification. There is no pericardial effusion. No enlarged axillary, mediastinal or hilar lymph nodes are present. There is no pneumothorax or pleural effusion. There is no consolidation to suggest pneumonia. No suspicious pulmonary nodules are present. Mild subpleural groundglass opacities represent atelectasis. There are no acute fractures within the visualized bony thorax. Visualized portions of the upper abdomen are unremarkable. EGD: none Colonoscopy: about three years ago outside facility Allergies Allergy/AdvReac Type Severity Reaction Status Date / Time clarithromycin Allergy Unknown Unknown - Unverified 10/16/23 11:41 On file / [facility] pharmacy Home Medications Medication Instructions Recorded Confirmed Type valsartan 40 mg tablet 40 mg PO DAILY 10/16/23 10/16/23 History metoprolol succinate 25 mg 25 mg PO DAILY #30 tabs 10/18/23 Rx tablet,extended release 24 hr pantoprazole 40 mg tablet,delayed 40 mg PO QAM #30 tabs 10/18/23 Rx release Patient History Medical History (Updated 10/18/23 @ 12:21 by Osbaldo Crowe MD) Bilateral inguinal hernia without obstruction or gangrene Raynauds disease Osteoarthritis Hx of migraines Hx of Lyme disease History of COVID-19 (08/2021) home test -fever, fatigue; no hospitalization, no current issues Surgical History Hx of inguinal hernia surgery bilateral History of cataract surgery r/l H/O vasectomy H/O colonoscopy Family History Mother Cancer Father Cancer Brother Colorectal cancer Other No family history of adverse response to anesthesia Social History Smoking Status: Never smoker Second Hand Exposure: No; Do You Dip or Chew Tobacco: No; Tobacco Cessation Education Requested by Patient: No Hx Alcohol Use: Yes Alcohol type: beer Hx Substance Use: No Preferred Language: Ecuadorean Communication Ability: Effective Sausage Meat Trimmer Required: No Beliefs That Will Affect Care: None marital status: Current Living Situation: Spouse current occupational status: retired Other Information That Helps Us Care for You: No Feels Safe at Home: Yes Safety Concerns: Feels Safe At This Time Assistive Devices: None Review of Systems Review of Systems: All systems reviewed & are unremarkable except as noted in HPI & below Physical Exam Constitutional: WD/WN, vitals as above Gastrointestinal (Abdomen): normal bowel sounds, soft, nontender, no hepatosplenomegaly Skin: no rashes, warm and dry Results & Data Vital Signs (Past 12 Hours) Vital Signs Temp Pulse Pulse Resp BP BP Pulse Ox 10/18/23 08:19 36.7 C 69 18 126/74 97 10/18/23 08:11 89 10/18/23 04:00 36.9 C 85 18 119/76 97 10/18/23 00:36 37.1 C 111 H 18 132/85 97 10/17/23 23:30 37.1 C 76 18 144/83 H 97 10/17/23 22:51 71 O2 Del Method 10/18/23 08:19 Room Air 10/18/23 08:11 10/18/23 04:00 Room Air 10/18/23 00:36 Room Air 10/17/23 23:30 Room Air 10/17/23 22:51 Laboratory Results 10/18/23 10/17/23 10/17/23 Range/Units 05:25 Unknown 15:09 WBC 6.33 5.45 (4.8-10.8) K/ul RBC 3.62 L 3.40 L (4.70-6.10) M/uL Hgb 10.4 L 9.9 L (14.0-18.0) g/dl Hct 32.2 L 30.5 L (42.0-52.0) % MCV 89.0 89.7 (80.0-100.0) fL MCH 28.7 29.1 (25.0-34.0) pg MCHC 32.3 32.5 (32.0-36.0) g/dL RDW Std Deviation 41.1 42.1 (36.4-46.3) fL RDW Coeff of Telma 12.7 12.8 (11.5-14.5) % Plt Count 240 251 (130-400) K/uL MPV 10.0 9.6 (9.4-12.4) fL Sodium 136 (136-145) mmol/L Potassium 3.8 (3.5-5.1) mmol/L Chloride 104 (98-107) mmol/L Carbon Dioxide 26 (21-32) mmol/L Anion Gap 6 (3-11) BUN 18 (6-23) mg/dl Creatinine 0.88 (0.6-1.4) mg/dl Est Cr Clr Drug Dosing 67.9 ml/min Est GFR ( Amer) 96.7 ml/min Est GFR (Non-Af Amer) 83.4 ml/min BUN/Creatinine Ratio 20.5 H (10-20) Glucose 106 H (70-99(Fasting)) mg/dl Calcium 8.7 (8.6-10.3) mg/dl Iron 51 (35-175) mcg/dl TIBC 279 (250-450) mcg/dl Unsaturated IBC 228 (155-355) mcg/dl Transferrin % Sat 18 L (20-50) % Ferritin 297.8 (8-388) ng/ml Triglycerides 89 (0-150) mg/dl Cholesterol 111 (0-200) mg/dl LDL Cholesterol, Calc 65 mg/dl VLDL Cholesterol, Calc 18 (0-30) mg/dl HDL Cholesterol 28 mg/dl Cholesterol/HDL Ratio 4.0 (0-5) Vitamin B12 419 (180-914) pg/ml Folate 8.45 (>5.38) ng/ml SARS-CoV-2 (PCR) NEGATIVE (Negative) Influenza Type A (PCR) Negative (Neg) Influenza Type B (PCR) Negative (Neg) RSV (RT-PCR) Negative (Neg) PG Care Time/CCT Total # of Minutes Spent Total Time Spent with Patient: Total time spent is greater than 50% in coordination of care (as documented) at patient's floor/unit and/or counseling patient: Coding Level of Care Code 71839 INT INP/OBS CARE 2MIN Diagnoses Chest pain R07.9 Chest pain type: unspecified (1) Chest pain Chest pain type: unspecified Qualified Code(s): R07.9 - Chest pain, unspecified
[2023-10-18] MEDS ORDERED: METOPROLOL TARTRATE 25 MG TAB PO STA (10:53)
[2023-10-18 11:36] VITALS: PULSE 88; O2SAT 98
--- NOTE | 2023-10-18 12:09 | Cardiology Consultation ---
Date of Consultation October 18, 2023 Assessment & Plan (1) SVT (supraventricular tachycardia): -Noted both in the emergency room and on telemetry last evening. -Dr. Abraham feels this may be an atypical atrial flutter or an ectopic atrial tachycardia. -Suggest beta-mirta or calcium channel mirta therapy. -30-day event monitor. -Follow-up with Dr. Abraham. (2) Chest pain: -Noncardiac chest pain. -Negative dobutamine stress echocardiogram yesterday. History of Present Illness Attending Physician: Alberto Sol MD History of Present Illness Mr. Kowalski is a 78-year-old male on October 15 with a chest pain syndrome. Last evening, the patient had a 3-1/2-hour episode of tachycardia, therefore, this consultation was ordered. The patient typically follows with Dr. Matthew Quigley in [place] ([phone]). The patient was in his usual state of health until several days prior to presentation. He began to note a chest pain syndrome that he described as a "electric sensation" in his central chest. This could occur with exertion, and also occurred at rest. There were no other associated symptoms such as shortness of breath, nausea, vomiting, or diaphoresis. He did undergo a negative dobutamine stress echocardiogram yesterday. His heart rate got up to 84% of the predicted maximum. Baseline echocardiogram noted normal systolic function. Last evening, the patient went into a narrow complex tachycardia which lasted approximately 3-1/2 hours. The strips were reviewed with Dr. Abraham who felt this could represent either an atypical atrial flutter, or and ectopic atrial tachycardia. He suggested either a beta-mirta or calcium channel mirta along with a 30-day event monitor. He will be seen in follow-up by Dr. Abraham. The patient did notice his heart to be "racing." This typically occurs at night when he is stressed and cannot sleep. He is not certain if he experiences palpitations concurrently. He feels that this is related to his high level of stress and anxiety. Currently, patient resting comfortably in bed and without complaints. Past medical and surgical history 1. Hypertension 2. Borderline left ventricular hypertrophy 3. Mild tricuspid regurgitation 4. Raynaud's phenomenon 5. Migraine headaches 6 #6 anxiety/depression 7. DJD 8. Bilateral inguinal hernia repair 9. Bilateral intraocular lens implants 10. Vasectomy Social history and lives with his No tobacco Occasional alcohol Family history No early coronary artery disease Review of systems A 10 point review of systems was undertaken and negative except that scribed above. Allergies Allergy/AdvReac Type Severity Reaction Status Date / Time clarithromycin Allergy Unknown Unknown - Unverified 10/16/23 11:41 On file w/ [facility] Home Medications Medication Instructions Recorded Confirmed Type valsartan 40 mg tablet 40 mg PO DAILY 10/16/23 10/16/23 History Patient History Medical History (Updated 10/18/23 @ 12:21 by Osbaldo Crowe MD) Bilateral inguinal hernia without obstruction or gangrene Raynauds disease Osteoarthritis Hx of migraines Hx of Lyme disease History of COVID-19 (08/2021) home test -fever, fatigue; no hospitalization, no current issues Surgical History Hx of inguinal hernia surgery bilateral History of cataract surgery r/l H/O vasectomy H/O colonoscopy Family History Mother Cancer Father Cancer Brother Colorectal cancer Other No family history of adverse response to anesthesia Social History Smoking Status: Never smoker Second Hand Exposure: No; Do You Dip or Chew Tobacco: No; Tobacco Cessation Education Requested by Patient: No Hx Alcohol Use: Yes Alcohol type: beer Hx Substance Use: No Preferred Language: Tajik Communication Ability: Effective Stand Up Comedian Required: No Beliefs That Will Affect Care: None marital status: Current Living Situation: Spouse current occupational status: retired Other Information That Helps Us Care for You: No Feels Safe at Home: Yes Safety Concerns: Feels Safe At This Time Assistive Devices: None Physical Exam Physical Exam: In general this is a well-developed well-nourished white male in no acute distress. HEENT exam is negative. Neck reveals normal carotid upstrokes without bruits. Jugular venous pressure is flat at 90. There is no thyromegaly. Cardiovascular exam reveals a regular rhythm with a normal S1 and S2. No S3, S4, or murmurs are noted. Lungs are clear without rales, rhonchi, or wheezes. A bdomen is soft without bruits. Extremities reveal intact radial artery and posterior tibial pulses bilaterally. There is no peripheral edema. Results & Data Vital Signs (Past 12 Hours) Vital Signs Temp Pulse Pulse Resp BP BP Pulse Ox 10/18/23 11:36 36.7 C 88 18 136/77 98 10/18/23 08:19 36.7 C 69 18 126/74 97 10/18/23 08:11 89 10/18/23 04:00 36.9 C 85 18 119/76 97 10/18/23 00:36 37.1 C 111 H 18 132/85 97 O2 Del Method 10/18/23 11:36 Room Air 10/18/23 08:19 Room Air 10/18/23 08:11 10/18/23 04:00 Room Air 10/18/23 00:36 Room Air Laboratory Results CBC notes hemoglobin 10.4, down from 12.4 on admission. Electrolytes noted sodium of 136, potassium 3.8, chloride 104, bicarb 26, BUN 18, creatinine 0.88, and a glucose of 106. 3 high-sensitivity troponins were negative at 16.2, 12.8, and 17. Diagnostic Findings Dobutamine stress echocardiogram negative for ischemia at 84% of maximum predicted heart rate. Baseline echocardiogram notes normal left trickle systolic function, borderline LVH, and mild tricuspid regurgitation. PG Care Time/CCT Total # of Minutes Spent Total Time Spent with Patient: Total time spent is greater than 50% in coordination of care (as documented) at patient's floor/unit and/or counseling patient: Coding Level of Care Code 19354 INT INP/OBS CARE 3/75MIN Diagnoses SVT (supraventricular tachycardia) I47.10 Chest pain R07.9 Chest pain type: unspecified (2) Chest pain Chest pain type: unspecified Qualified Code(s): R07.9 - Chest pain, unspecified
[2023-10-18 13:15] VITALS: BP 119/76
--- NOTE | 2023-10-18 13:22 | Discharge Summary ---
Discharge Summary Date of Service date of admission - October 16, 2023 date of discharge - October 18, 2023 Principal Dx & Hospital Course #1 = Principal Diagnosis (1) Chest pain: Dobutamine stress echocardiogram was negative for ischemia at 84% of max predicted HR (just shy of target HR) EKGs were wnl Troponins were negative CTA chest neg for PE COVID testing negative Incidentally his CTA chest did demonstrate coronary calcifications The night prior to discharge home the patient was noted to have ~3 hour episode of narrow complex tachycardia on monitoring It was uncertain if the tachycardia was atrial tachycardia or a form of atrial flutter During that episode he had vague chest symptoms He was seen by [facility] Cardiology They advised metoprolol succinate 25mg daily with outpatient f/u with [facility] Electrophysiology (Dr Naveen Abraham) (2) SVT (supraventricular tachycardia): see #1 above (3) Anemia: Presenting Hb was 12.4, falling to 9.9, and discharge Hb was 10.4 No overt GI bleeding has been seen at home by the patient or here in the hospital Started a PPI while here in the event he has anemia from an upper GI problem Transferring saturation was 18% Ferritin was 297 B12 was 419 Folate was 8.4 Fecal occult blood was ordered but never collected due to lack of bowel movement Advised PPI once daily upon discharge home and f/u with his PCP to obtain outpatient GI referral Of note - GI was consulted and offered EGD during this stay but patient declined the EGD (4) History of hypertension: Controlled on low-dose valsartan previously Recommended d/c of valsartan and changing to metoprolol succinate once daily due to #1 (5) Osteoarthritis of right shoulder: severe needs total shoulder replacement to have such in future by Dr Drake Quan doubt it is contributing to his chest pain symptoms (6) Cardiac murmur: no significant valvular issue/disease on echo while here functional/flow murmur only (7) Coronary artery calcification seen on CAT scan: seen incidentally on CTA chest Notes For Next Care Provider 1. needs electrophysiology/cardiology follow-up for narrow complex tachycardia 2. needs gastroenterology follow-up Medication Changes From Visit 1. d/c valsartan 2. start the following - * metoprolol succinate 25mg daily * protonix 40mg daily Discharge Exam gen - NAD, lying in bed comfortably mouth - MMM neck - no JVD heart - 1/6 LUCAS LSB, RRR, s1 s2 lungs - CTA b/l chest - no reproducible chest wall tenderness to palpation abd - soft, NT, ND, BS+, no HSM ext - no edema, pulses 2+ b/l musculo - right shoulder - with passive ROM he reports pain in the shoulder but the pain does not radiate anywhere else psych - a/o x 3 Discharge Plan Discharge Items Patient Disposition: Home - Self-Care Reason For Visit: CHEST PAIN Discharge Diagnosis: 1. chest pain - no evidence of heart attack, stress test negative 2. supraventricular tachycardia (SVT) - likely cause of your chest pain/chest symptoms - cardiology follow-up needed 3. mild anemia - GI follow-up needed; discharge hemoglobin 10.4; discharge hematocrit 32.2 4. coronary artery calcification on CT scan chest - this can also be followed by cardiology Activity: Resume your previous activity Non-emergency contact: Primary Care Provider and Psychiatry Instructor Call non-emergency contact if: you have any medication questions and your symptoms worsen Follow-up/Referrals: Naveen Abraham MD [Physician] - (DR ABRAHAM'S OFFICE WILL REACH OUT TO YOU TO SCHEDULE A HOSPITAL FOLLOW-UP APPOINTMENT WITHIN THE NEXT FEW DAYS.) Dung Quigley MD [Primary Care Provider] - (PLEASE CALL YOUR PRIMARY CARE PROVIDER TO SCHEDULE A HOSPITAL DISCHARGE FOLLOW-UP APPOINTMENT WITHIN 7-10 DAYS) Diet: Heart Healthy Addtl Attending Provider Instructions: Mr Kowalski, You were hospitalized due to having episodes of chest discomfort. Blood work for the heart (also known as "troponin") was normal, your echocardiogram was normal, and your stress test was also normal. On 2 occasions you had a rapid heart rhythm originating from the top of the heart called "SVT" (supraventricular tachycardia). The rapid heart rhythm was seen on the heart monitor. There are various types of SVT. It is uncertain which subtype you have. Regardless, it does appear that you are experiencing symptoms from the SVT. Early in the AM on 10/18/23 you had a several hour episode of the irregular heart rhythm and you were having chest symptoms at the same time. You were seen by Dr Kain Crowe, [facility]. He advised the following - * start metoprolol succinate 25mg once daily; this medicine will slow your heart rate if you go back into the SVT; by slowing the heart rate you reduce the chest symptoms * 30-day monitor; this will be mailed to your home with instructions on its use; this should arrive at your home within the next week; the results get forwarded to [facility]; this monitor is intended to detect how frequently you are experiencing the SVT * follow-up with Dr Naveen Abraham, [facility], who is a learning center instructor that specializes in heart rhythm problems Since we are starting metoprolol succinate please discontinue the valsartan. In addition to the above we noted that you are mildly anemic. The exact cause of this is uncertain. Your iron studies, B12 level, and folic acid level were all acceptable. Please do the following - * take an acid director biostatistics once daily in the event that your anemia is from gastrointestinal blood loss; take pantoprazole 40mg once daily * avoid advil / ibuprofen for now * ok to take tylenol as needed for aches / pains * see your family doctor and ask for a gastroenterology referral for consideration of endoscopy (upper and/or lower scopes) Follow-up - see separate section Return to [facility] if - * you have recurrent chest pains * you have shortness of breath * you have severe dizziness or lightheadedness * you have severe palpitations * any other concerns It was our pleasure to care for you! Pending Studies at Discharge: No Stand-Alone Forms: My [facility], Smoking Cessation Medications and DC Order Prescriptions: New pantoprazole 40 mg Tablet,Delayed Release (Dr/Ec) 40 mg PO QAM Qty: 30 2RF metoprolol succinate 25 mg tablet extended release 24 hr 25 mg PO DAILY Qty: 30 2RF Discontinued valsartan 40 mg tablet 40 mg PO DAILY Discharge Orders: Discharge Order (Routine); Ordered 10/18/23 Ordered By: Alberto Bartholomew/Other Patient Handouts: Supraventricular Tachycardia, Anemia Admission Data Admit Date/Time: 10/16/23 13:31 Attending Provider: Alberto Sol Admit Provider: Alberto Danielson Primary Care Provider: Dung Quigley Other Providers: Alberto Danielson; Manuel Cherry; Osbaldo Crowe Other Interventions: Discharge Summary Assessment (RN) Last Done: 10/18/23 13:13 Hospital Stay Data Consultations [facility] Gastroenterology [facility] Cardiology Procedures Performed Dobutamine Stress Echocardiogram - * EF wnl * NEGATIVE for stress-induced myocardial ischemia at 85% of max predicted heart rate * normal valve function Diagnostic Imagining Performed Chest X-Ray 10/16/23 09:38 XR chest 1V portable CLINICAL HISTORY: Chest pain, nonspecific. COMPARISON STUDY: No previous studies for comparison. FINDINGS: Lung volumes are normal. Lungs are clear. There is no pneumothorax or pleural effusion. Cardiac size is normal. Mediastinal contours are normal. There is no evidence for pulmonary edema. IMPRESSION: No acute cardiopulmonary findings. ACT 112: Negative or not required by law. Electronically signed by: Colin Robbins M.D. 10/16/2023 10:04 AM Chest CTA 10/16/23 11:55 CT ANGIOGRAPHY OF THE CHEST, PULMONARY EMBOLUS PROTOCOL CLINICAL HISTORY: Shortness of breath. Evaluate for pulmonary embolus. COMPARISON STUDY: Chest radiograph performed earlier today. TECHNIQUE: Following IV administration of 119 mL of Optiray, helical axial images of the chest were obtained utilizing the pulmonary embolus protocol. Maximal intensity projections and sagittal and coronal reformats were viewed on an independent 3D workstation. IV contrast was administered without complication. Automated exposure control was utilized for the study. A dose lowering technique was utilized adhering to the principles of ALARA. CT DOSE: 410.04 mGy.cm FINDINGS: No pulmonary emboli are identified. There is no thoracic aortic dissection. The size of the heart is normal. There is moderate coronary artery calcification. There is no pericardial effusion. No enlarged axillary, mediastinal or hilar lymph nodes are present. There is no pneumothorax or pleural effusion. There is no consolidation to suggest pneumonia. No suspicious pulmonary nodules are present. Mild subpleural groundglass opacities represent atelectasis. There are no acute fractures within the visualized bony thorax. Visualized portions of the upper abdomen are unremarkable. IMPRESSION: 1. No pulmonary emboli identified. 2. No acute intrathoracic findings. ACT 112: Negative or not required by law. Electronically signed by: Colin Robbins M.D. 10/16/2023 1:20 PM Pending Results Patient Have Any Pending Studies at Discharge: No Discharge Instructions Given to Patient (Per Discharging Provider) Vincent Quiroga were hospitalized due to having episodes of chest discomfort. Blood work for the heart (also known as "troponin") was normal, your echocardiogram was normal, and your stress test was also normal. On 2 occasions you had a rapid heart rhythm originating from the top of the heart called "SVT" (supraventricular tachycardia). The rapid heart rhythm was seen on the heart monitor. There are various types of SVT. It is uncertain which subtype you have. Regardless, it does appear that you are experiencing symptoms from the SVT. Early in the AM on 10/18/23 you had a several hour episode of the irregular heart rhythm and you were having chest symptoms at the same time. You were seen by Dr Kain Crowe, [facility]. He advised the following - * start metoprolol succinate 25mg once daily; this medicine will slow your heart rate if you go back into the SVT; by slowing the heart rate you reduce the chest symptoms * 30-day monitor; this will be mailed to your home with instructions on its use; this should arrive at your home within the next week; the results get forward ed to [facility]; this monitor is intended to detect how frequently you are experiencing the SVT * follow-up with Dr Naveen Abraham, [facility], who is a learning center instructor that specializes in heart rhythm problems Since we are starting metoprolol succinate please discontinue the valsartan. In addition to the above we noted that you are mildly anemic. The exact cause of this is uncertain. Your iron studies, B12 level, and folic acid level were all acceptable. Please do the following - * take an acid director biostatistics once daily in the event that your anemia is from gastroi ntestinal blood loss; take pantoprazole 40mg once daily * avoid advil / ibuprofen for now * ok to take tylenol as needed for aches / pains * see your family doctor and ask for a gastroenterology referral for consideration of endoscopy (upper and/or lower scopes) Follow-up - see separate section Return to [facility] if - * you have recurrent chest pains * you have shortness of breath * you have severe dizziness or lightheadedness * you have severe palpitations * any other concerns It was our pleasure to care for you! Total Time Total Time Spent Total Time Spent (In Minutes): 50 Coding Level of Care Code 56198 INP/OBS DISCH >30 MIN Diagnoses Chest pain R07.9 Chest pain type: unspecified SVT (supraventricular tachycardia) I47.10 Anemia D64.9 Anemia type: unspecified type History of hypertension Z86.79 Osteoarthritis of right shoulder M19.011 Cardiac murmur R01.1 Coronary artery calcification seen on CAT scan I25.10
== END 2023-10-18 14:14 | disposition home or self-care (01) ==
LOC: ED 09:26 → 2W 09:26 → SUATTDRO 13:31 → 2W 21:06